=== PATIENT | female | born 1955 | race Asian ===

== ENCOUNTER 2018-01-08 09:17 | Emergency (ER) | payer OTHER ==
[2018-01-08 09:46] VITALS: BP 134/62
--- NOTE | 2018-01-08 09:59 | UC ---
Respiratory Complaint HPI - HPI Summary HPI Summary: 62 yo female presents with "wheezing". She tells me that about 1 week ago she developed sinus pain/pressure/congestion and post nasal drip. 2 days ago she started a zpak that a family member had left over. Yesterday she feels as if she is wheezing with a slight dry cough and this made her concerned as she has never had wheezing or lung issues in the past. She has been taking mucinex, tylenol, and robitussin OTC with no relief. Denies fever, chills, sore throat, SOB, chest pain. - History of Current Complaint Chief Complaint: UCRespiratory Stated Complaint: COUGH Time Seen by Provider: 01/08/18 09:57 Hx Obtained From: Patient Hx Last Menstrual Period: n/a Severity Currently: None Pain Intensity: 0 Character: Cough: Nonproductive - Allergies/Home Medications Allergies/Adverse Reactions: Allergies Allergy/AdvReac Type Severity Reaction Status Date / Time No Known Allergies Allergy Verified 01/08/18 09:42 Home Medications: Home Medications Azithromycin TAB* [Zithromax TAB (Z-NABOR) 250 mg #6 tabs] 250 mg PO DAILY [History Confirmed 01/08/18] Estradiol (NF) 0.5 mg PO DAILY 01/08/18 [History Confirmed 01/08/18] Losartan/Hydrochlorothiazide [Losartan Potassium/Hydroc 100-12.5 mg] 1 tab PO DAILY 01/08/18 [History Confirmed 01/08/18] Metoprolol Tartrate TAB* [Lopressor TAB*] 25 mg PO DAILY 01/08/18 [History Confirmed 01/08/18] PMH/Surg Hx/FS Hx/Imm Hx Cardiovascular History: Hypertension - Surgical History Surgical History: Yes Surgery Procedure, Year, and Place: hysterectomy. reconstrutction of ureter - Family History Known Family History: Positive: Hypertension - Social History Lives: With Family Alcohol Use: None Substance Use Type: None Smoking Status (MU): Never Smoked Tobacco Review of Systems All Other Systems Reviewed And Are Negative: Yes Constitutional: Positive: Negative Skin: Positive: Negative Eyes: Positive: Negative ENT: Positive: Nasal Discharge, Sinus Congestion, Sinus Pain/Tenderness Respiratory: Positive: Cough Cardiovascular: Positive: Negative Gastrointestinal: Positive: Negative Genitourinary: Positive: Negative Neurological: Positive: Negative Psychological: Positive: Negative Physical Exam - Summary Physical Exam Summary: GENERAL: NAD. WDWN. No pain distress. SKIN: No rashes, sores, lesions, or open wounds. HEENT: Head: AT/NC Eyes: EOM intact. Conjunctiva clear without inflammation or discharge. Ears: Hearing grossly normal. TMs intact, no bulging, erythema, or edema. Nose: Nasal mucosa pink and moist. NTTP maxillary and frontal sinus. Throat: Posterior oropharynx without exudates, erythema, or tonsillar enlargement. Uvula midline. NECK: Supple. Nontender. No lymphadenopathy. CHEST: CTAB. No r/r/w. No accessory muscle use. Breathing comfortably and in no distress. CV: RRR. Without m/r/g. Pulses intact. Cap refill <2seconds NEURO: Alert. PSYCH: Age appropriate behavior. Triage Information Reviewed: Yes Vital Signs: Initial Vital Signs Temp 99.3 F 01/08/18 09:39 Pulse 72 01/08/18 09:39 Resp 18 01/08/18 09:39 BP 134/62 01/08/18 09:39 Pulse Ox 98 01/08/18 09:39 Vital Signs Reviewed: Yes Diagnostic Evaluation - Laboratory O2 Sat by Pulse Oximetry: 98 Respiratory Course/Dx - Course Course Of Treatment: Exam is WNL and lungs are clear without wheezing. Will have her continue her zpak and will rx for an albuterol inhaler to use prn coughing/wheezing. F/u if symptoms worsen or persist. - Differential Dx/Diagnosis Provider Diagnoses: Sinusitis. Cough Discharge - Sign-Out/Discharge Documenting (check all that apply): Patient Departure All imaging exams completed and their final reports reviewed: No Studies - Discharge Plan Condition: Stable Disposition: HOME Prescriptions: Albuterol HFA INHALER* [Ventolin HFA Inhaler*] 1 - 2 puff INH Q6H PRN #1 mdi PRN Reason: Wheezing Patient Education Materials: Acute Cough (ED) Referrals: No Primary Care Phys,NOPCP [Primary Care Provider] - Additional Instructions: If you develop a fever, shortness of breath, chest pain, new or worsening symptoms - please call your PCP or go to the ED. Your blood pressure was mildly elevated at todays visit. Please see your primary provider within 4 weeks for recheck and re-evaluation. - Billing Disposition and Condition Condition: STABLE Disposition: Home - Attestation Statements Provider Attestation: I was available for consult. This patient was seen by the CHANDNI. The patient was not presented to, seen by, or examined by me. -Dat
== END 2018-01-08 10:05 | disposition home or self-care (01) ==
LOC: UCCORT 09:17
DX: J32.9 Chronic sinusitis, unspecified (principal); R05 Cough; R06.2 Wheezing; I10 Essential (primary) hypertension; Z79.899 Other long term (current) drug therapy
CPT/HCPCS: 99202; G0463